=== PATIENT | female | born 1990 | race Caucasian/White ===

== ENCOUNTER → 2022-03-21 | Emergency (ER) | payer BC ==
[~2022-03-21] VITALS: Ht 162.6 cm; Wt 104.5 kg
[~2022-03-21] MED LIST: AUROVELA FE 1-1 EACH PO; MEDROL 4MG DOSPA4 MG PO; ZITHROMAX Z PA250 MG PO
[2022-03-21 17:33] VITALS: TEMP 97.7
[2022-03-21 18:28] VITALS: BP 151/98; PULSE 97
== END ==
LOC: COL.ER 17:09
DX: J40 Bronchitis, not specified as acute or chronic (principal); Z20.822 Contact with and (suspected) exposure to COVID-19